=== PATIENT | female | born 1975 | race Caucasian/White ===

== ENCOUNTER 2023-12-12 18:03 | Inpatient (IN) | payer OTHER ==
[2023-12-12] MEDS ORDERED: ACETAMINOPHEN INJECTION 100 ML ONE (19:22)
[2023-12-12] MEDS ORDERED: ONDANSETRON 4 MG/2 ML VIAL ONE (19:22)
[2023-12-12] MEDS: SODIUM CHLORIDE 0.9% 500 ML INFUS.BAG IV ONE ×2 (19:50→23:00)
[2023-12-12] MEDS: ACETAMINOPHEN 1000 MG/100 ML BAG IVPB ONE (19:50)
[2023-12-12] MEDS: ONDANSETRON 4 MG/2 ML VIAL IVPUSH ONE (19:51)
[2023-12-12 20:03] LABS: BASO % 0.4 % (0-2.0); EOS % 1.8 % (0-4.5); HEMATOCRIT 39.6 % (32.4-45.2); LYMPH % 15.9 % (8-40); MCH 28.5 pg (25.7-33.7); MCHC 32.8 g/dl (32.0-36.0); MEAN CELL VOLUME 86.6 fl (80-96); MONO % 5.7 % (3.8-10.2); NEUT % 76.2 % (42.8-82.8); PLATELET COUNT 293 10^3/uL (134-434); RBC 4.57 M/mm3 (3.60-5.2); RDW 14.4 % (11.6-15.6); WHITE BLOOD COUNT 12.9 K/mm3 (4.0-10.0)
[2023-12-12 20:09] LABS: EPI CELLS >36 /uL (0-25.1); HYALINE CASTS 0 /uL (0-3.1); PH,URINE 6.5 (5.0-8.0); URINE APPEARANCE CLEAR; URINE BACTERIA 282 /uL (0-1359); URINE BILIRUBIN NEGATIVE (NEGATIVE); URINE COLOR ORANGE; URINE GLUCOSE (UA) NEGATIVE (NEGATIVE); URINE KETONE TRACE (NEGATIVE); URINE LEUK ESTERASE 1+ (NEGATIVE); URINE NITRITE NEGATIVE (NEGATIVE); URINE PROTEIN 2+ (NEGATIVE); URINE RBC 863 /uL (0-23.9); URINE UROBILINOGEN 0.2 mg/dL (0.2-1.0); URINE WBC 76 /uL (0-25.8)
[2023-12-12 20:24] LABS: POTASSIUM 3.5 mmol/L (3.5-5.1)
[2023-12-12 20:26] LABS: CALCIUM 9.1 mg/dL (8.5-10.1)
[2023-12-12 20:27] LABS: ALBUMIN 3.9 g/dl (3.4-5.0); BLOOD UREA NITROGEN 9.1 mg/dL (7-18)
[2023-12-12 20:30] LABS: CREATININE 0.6 mg/dL (0.55-1.3)
[2023-12-12 20:31] LABS: BILIRUBIN,TOTAL 0.3 mg/dL (0.2-1); TOT PROT 7.4 g/dl (6.4-8.2)
[2023-12-12] MEDS ORDERED: MORPHINE SULFATE 2 MG/ML SYRINGE ONE (22:49)
[2023-12-12] MEDS: morphine CARPU-JECT 2 MG/1 ML DISP.SYRIN IVPUSH ONE (23:00)
[2023-12-12] MEDS: LACTATED RINGERS SOLUTION 1,000 ML/1,000 ML INFUS.BAG IV SCH (23:46)
[2023-12-13] MEDS ORDERED: ONDANSETRON 4 MG/2 ML VIAL IVPUSH PRN (02:00)
[2023-12-13] MEDS ORDERED: ACETAMINOPHEN INJECTION 100 ML ONE (05:00)
[2023-12-13] MEDS: ACETAMINOPHEN 1000 MG/100 ML BAG IVPB PRN (05:00)
[2023-12-13 07:20] LABS: BASO % 0.5 % (0-2.0); EOS % 2.3 % (0-4.5); HEMATOCRIT 35.4 % (32.4-45.2); HEMOGLOBIN 11.7 GM/dL (10.7-15.3); LYMPH % 13.5 % (8-40); MCH 28.6 pg (25.7-33.7); MCHC 32.9 g/dl (32.0-36.0); MEAN PLT VOLUME 10.3 fl (7.5-11.1); MONO % 6.7 % (3.8-10.2); PLATELET COUNT 241 10^3/uL (134-434); RBC 4.07 M/mm3 (3.60-5.2); RDW 14.1 % (11.6-15.6); WHITE BLOOD COUNT 11.5 K/mm3 (4.0-10.0)
[2023-12-13 07:36] LABS: CHLORIDE 109 mmol/L (98-107); POTASSIUM 3.6 mmol/L (3.5-5.1); SODIUM 139 mmol/L (136-145)
[2023-12-13 07:39] LABS: CALCIUM 8.2 mg/dL (8.5-10.1)
[2023-12-13 07:40] LABS: ANION GAP 3 mmol/L (4-13); BLOOD UREA NITROGEN 4.8 mg/dL (7-18); CO2 27 mmol/L (21-32); GLUCOSE,RANDOM 109 mg/dL (74-106)
[2023-12-13 07:43] LABS: CREATININE 0.5 mg/dL (0.55-1.3)
[2023-12-14] MEDS ORDERED: MORPHINE SULFATE 2 MG/ML SYRINGE ONE ×2 (02:04→02:06)
[2023-12-14] MEDS: MORPHINE SULFATE 2 MG/ML SYRINGE IVPUSH PRN (02:11)
[2023-12-14 02:58] VITALS: BMI 37.1
[2023-12-14 10:28] LABS: BASO % 0.5 % (0-2.0); EOS % 1.4 % (0-4.5); HEMATOCRIT 35.1 % (32.4-45.2); HEMOGLOBIN 11.7 GM/dL (10.7-15.3); LYMPH % 12.8 % (8-40); MCH 28.9 pg (25.7-33.7); MCHC 33.4 g/dl (32.0-36.0); MEAN CELL VOLUME 86.5 fl (80-96); MEAN PLT VOLUME 10.6 fl (7.5-11.1); MONO % 7.6 % (3.8-10.2); NEUT % 77.7 % (42.8-82.8); PLATELET COUNT 252 10^3/uL (134-434); RBC 4.05 M/mm3 (3.60-5.2); WHITE BLOOD COUNT 13.3 K/mm3 (4.0-10.0)
[2023-12-14 11:03] LABS: POTASSIUM 3.4 mmol/L (3.5-5.1)
[2023-12-14 11:10] LABS: BLOOD UREA NITROGEN 4.1 mg/dL (7-18); CALCIUM 8.6 mg/dL (8.5-10.1); CREATININE 0.5 mg/dL (0.55-1.3)
[2023-12-14 11:12] LABS: BILIRUBIN,TOTAL 0.4 mg/dL (0.2-1); TOT PROT 6.2 g/dl (6.4-8.2)
[2023-12-14 11:27] LABS: ALBUMIN 3.1 g/dl (3.4-5.0)
[2023-12-14] MEDS: amLODIPine BESYLATE 5 MG TABLET (FP) PO SCH (17:12)
[2023-12-14] MEDS: ACETAMINOPHEN 1000 MG/100 ML BAG IVPB PRN (17:13)
[2023-12-15 13:59] LABS: BASO % 0.9 % (0-2.0); EOS % 3.7 % (0-4.5); HEMATOCRIT 33.6 % (32.4-45.2); HEMOGLOBIN 11.2 GM/dL (10.7-15.3); LYMPH % 23.3 % (8-40); MCH 28.8 pg (25.7-33.7); MCHC 33.1 g/dl (32.0-36.0); MEAN CELL VOLUME 86.8 fl (80-96); MONO % 8.9 % (3.8-10.2); NEUT % 63.2 % (42.8-82.8); PLATELET COUNT 275 10^3/uL (134-434); RBC 3.87 M/mm3 (3.60-5.2); RDW 13.8 % (11.6-15.6); WHITE BLOOD COUNT 10.8 K/mm3 (4.0-10.0)
[2023-12-15 15:05] LABS: POTASSIUM 3.2 mmol/L (3.5-5.1)
[2023-12-15 15:08] LABS: CALCIUM 8.8 mg/dL (8.5-10.1)
[2023-12-15 15:09] LABS: BLOOD UREA NITROGEN 3.3 mg/dL (7-18)
[2023-12-15 15:12] LABS: CREATININE 0.5 mg/dL (0.55-1.3)
[2023-12-15 15:13] LABS: BILIRUBIN,TOTAL 0.3 mg/dL (0.2-1); TOT PROT 6.1 g/dl (6.4-8.2)
[2023-12-16 09:20] LABS: BASO % 0.9 % (0-2.0); EOS % 4.2 % (0-4.5); HEMATOCRIT 37.9 % (32.4-45.2); HEMOGLOBIN 12.6 GM/dL (10.7-15.3); LYMPH % 26.4 % (8-40); MCH 28.8 pg (25.7-33.7); MCHC 33.3 g/dl (32.0-36.0); MEAN CELL VOLUME 86.6 fl (80-96); MEAN PLT VOLUME 9.9 fl (7.5-11.1); MONO % 6.9 % (3.8-10.2); NEUT % 61.6 % (42.8-82.8); PLATELET COUNT 357 10^3/uL (134-434); RBC 4.37 M/mm3 (3.60-5.2); RDW 14.2 % (11.6-15.6)
[2023-12-16 09:37] LABS: CHLORIDE 105 mmol/L (98-107); POTASSIUM 3.6 mmol/L (3.5-5.1); SODIUM 139 mmol/L (136-145)
[2023-12-16 09:42] LABS: ANION GAP 7 mmol/L (4-13); CALCIUM 9.2 mg/dL (8.5-10.1); CO2 27 mmol/L (21-32)
[2023-12-16 09:43] LABS: ALBUMIN 3.2 g/dl (3.4-5.0); GLUCOSE,RANDOM 103 mg/dL (74-106)
[2023-12-16 09:45] LABS: CREATININE 0.5 mg/dL (0.55-1.3); SGOT/AST 13 U/L (15-37); SGPT/ALT 12 U/L (13-61)
[2023-12-16 09:46] LABS: BLOOD UREA NITROGEN 2.9 mg/dL (7-18)
[2023-12-16 09:47] LABS: BILIRUBIN,TOTAL 0.3 mg/dL (0.2-1); TOT PROT 6.9 g/dl (6.4-8.2)
[2023-12-16 09:49] LABS: ALK PHOS 68 U/L (45-117)
[2023-12-18 09:50] LABS: BASO % 1.1 % (0-2.0); HEMATOCRIT 36.7 % (32.4-45.2); HEMOGLOBIN 12.1 GM/dL (10.7-15.3); MCH 28.4 pg (25.7-33.7); MCHC 33.1 g/dl (32.0-36.0); MEAN CELL VOLUME 85.8 fl (80-96); NEUT % 64.9 % (42.8-82.8); PLATELET COUNT 381 10^3/uL (134-434); RBC 4.28 M/mm3 (3.60-5.2); RDW 13.9 % (11.6-15.6); WHITE BLOOD COUNT 7.7 K/mm3 (4.0-10.0)
[2023-12-18 10:04] VITALS: TEMP 98.2
[2023-12-18 10:11] LABS: POTASSIUM 3.3 mmol/L (3.5-5.1)
[2023-12-18 10:15] LABS: CALCIUM 9.5 mg/dL (8.5-10.1)
[2023-12-18 10:16] LABS: ALBUMIN 3.1 g/dl (3.4-5.0); BLOOD UREA NITROGEN 5.8 mg/dL (7-18)
[2023-12-18 10:18] LABS: CREATININE 0.6 mg/dL (0.55-1.3)
[2023-12-18 10:20] LABS: BILIRUBIN,TOTAL 0.6 mg/dL (0.2-1); TOT PROT 6.6 g/dl (6.4-8.2)
[2023-12-18] MEDS: POTASSIUM CHLORIDE ORAL LIQUID 20 MEQ/15 ML PO ONE (13:08)
[2023-12-18 15:34] VITALS: BP 136/83; PULSE 98; RESP 19
== END 2023-12-18 15:45 | disposition home or self-care (01) | DRG 282 ==
LOC: JER 18:03 → JERBED 22:39 → J6S 12-14 02:22
PROVIDERS: ADMIT Student in an Organized Health Care Education/Training Program; ATTEND Internal Medicine
DX: K85.80 Other acute pancreatitis without necrosis or infection (principal); I10 Essential (primary) hypertension; K85.90 Acute pancreatitis without necrosis or infection, unspecified; D72.829 Elevated white blood cell count, unspecified; R10.13 Epigastric pain
CPT/HCPCS: 0241U-QW; 36415; 71046-TC-FY; 74160-TC; 74183-TC; 76705-TC; 80048; 80053; 80307; 81003; 83690; 84478; 84703; 85025; 86850; 86900; 86901; 87040; 87086; 93005; 93010; 99285-25; J0131